=== PATIENT | female | born 1985 ===

== ENCOUNTER 2016-05-16 20:43 | Emergency (ER) | payer OTHER ==
[~2016-05-16] VITALS: Ht 147.3 cm; Wt 53.6 kg
[2016-05-16] MEDS ORDERED: KETOROLAC 30 MG/ML (TORADOL) 1 ML VIAL IV ONE (21:20)
[2016-05-16] MEDS ORDERED: SUMAtriptan 6 MG/0.5 ML (IMITREX) INJ SC ONE (21:20)
[2016-05-16] MEDS ORDERED: SODIUM CHLORIDE FLUSH 3 ML SYR IV ONE (21:30)
[2016-05-16] MEDS ORDERED: SODIUM CHLORIDE FLUSH 10 ML SYR IV PRN (21:30)
[2016-05-16 21:55] LABS: MEAN CORPUSCULAR HEMOGLOBIN 30.2 PG (26.0-34.0); MEAN CORPUSCULAR HGB CONC 34.5 g/dL (31.0-37.0); MEAN CORPUSCULAR VOLUME 88 FL (80-100); MEAN PLATELET VOLUME 12.1 FL (6.0-9.5); PLATELET COUNT 190 10^3uL (150-450)
[2016-05-16 22:20] LABS: BAND NEUTROPHILS % 0 % (0-6); EOSINOPHILS % 0 % (0-4); LYMPHOCYTES # 1.7 #; MONOCYTES # 0.4 #; MONOCYTES % 3 % (3-11); RBC MORPH NORMAL (NORMAL); SEGMENTED NEUTROPHILS % 84 % (51-67); TOTAL CELLS COUNTED 99
[2016-05-16] MEDS ORDERED: cefTRIAXone SODIUM 1,000 MG in SODIUM CHLORIDE 50 ML IV ONE (22:35)
[2016-05-16] MEDS ORDERED: HYDROcodone/APAP 7.5 MG/325 MG (NORCO) TABLET PO ONE (22:50)
[2016-05-16 23:14] VITALS: BP 114/74
== END 2016-05-16 23:15 | disposition home or self-care (01) ==
LOC: ED 20:45
DX: J02.0 Streptococcal pharyngitis (principal); G43.909 Migraine, unspecified, not intractable, without status migrainosus
CPT/HCPCS: 36415; 85025; 87651; 96361; 96365; 96375; 99284; J0696; J1885; J3030; J7030; 99283